=== PATIENT | male | born 1940 | race Caucasian/White ===

== ENCOUNTER 2016-10-04 14:17 | Outpatient (CLI) | payer MEDICARE, OTHER | END 2016-10-04 14:18 | disposition home or self-care (01) | DX: M25.512 Pain in left shoulder (principal) ==

== ENCOUNTER 2016-10-16 10:32 | Outpatient (CLI) | payer MEDICARE, OTHER | END 2016-10-16 10:33 | disposition home or self-care (01) | DX: M75.102 Unspecified rotator cuff tear or rupture of left shoulder, not specified as traumatic (principal); M67.88 Other specified disorders of synovium and tendon, other site ==

== ENCOUNTER 2017-09-14 11:02 | Outpatient (CLI) | payer MEDICARE, OTHER | END 2017-09-14 11:03 | disposition home or self-care (01) | LOC: DI 11:02 | PROVIDERS: ATTEND Family Medicine | DX: R01.1 Cardiac murmur, unspecified (principal); I35.0 Nonrheumatic aortic (valve) stenosis; I51.7 Cardiomegaly | CPT/HCPCS: 93306 ==

== ENCOUNTER 2018-10-23 09:40 | Outpatient (CLI) | payer MEDICARE, OTHER ==
--- NOTE | 2018-10-23 15:12 | XRAY Report ---
Reason: RADICULOPATHY, CERVICAL REGION Procedure Date: 10/23/2018 Accession Number: [id number] / [id number] Procedure: XRN - Cervical Spine 2 View CPT Code: FULL RESULT: EXAM: CERVICAL SPINE RADIOGRAPHY EXAM DATE: 10/23/2018 10:00 AM. CLINICAL HISTORY: Radiculopathy, cervical region. COMPARISONS: None. TECHNIQUE: 3 views. FINDINGS: Alignment: There is 32 degrees of focal kyphosis across the C4 body/fusion with widening of the interspinous distances at C3-C4 and C4-C5. There is variable 4-6 mm of retrolisthesis of the posterior-inferior margin of C4 relative to C5 due to this kyphosis. Bones: There is mature interbody fusion at C5-C6. There has been an interbody fusion at C4-C5. The threads of the upper screws are mostly within the C3-C4 disk level and the anterior-inferior corner of C3 is impacting upon the upper ACDF plate due to the advanced focal kyphosis. No acute fractures appreciated. Disks: In addition to above, there is disk space narrowing and a moderate anterior osteophyte at C6-C7. Facets: No degenerative disease. Soft Tissues: Mild prominence to the prevertebral soft tissues anterior to C3 through C5 may be due to the kyphosis. IMPRESSION: Findings consistent with partial failure/complication of the ACDF fusion at C4-C5 of uncertain chronicity, as described. There is 32 degrees of focal kyphosis and upwards of 5-6 mm of retrolisthesis at C4-C5. [facility] The call report notification system was initiated by Dr. Roosevelt Doe at 01:44 PM on 10/23/2018. ADDENDUM: 10/23/18 15:13 The above call report findings were discussed with Kieran Ornelas by Dr. Roosevelt Doe at 03:13 PM on 10/23/2018.
== END 2018-10-23 09:41 | disposition home or self-care (01) ==
LOC: DI.N 09:40
PROVIDERS: ATTEND Specialist
DX: M50.323 Other cervical disc degeneration at C6-C7 level (principal); M40.202 Unspecified kyphosis, cervical region; M43.12 Spondylolisthesis, cervical region
CPT/HCPCS: 72040

== ENCOUNTER 2020-08-05 07:55 | Outpatient (CLI) | payer MEDICARE, OTHER | END 2020-08-05 07:56 | disposition short-term general hospital (02) | LOC: EMS 07:55 | PROVIDERS: ATTEND Surgery | DX: R41.0 Disorientation, unspecified (principal); R29.91 Unspecified symptoms and signs involving the musculoskeletal system; R47.81 Slurred speech | CPT/HCPCS: A0425; A0427 ==

== ENCOUNTER 2021-06-04 00:29 | Outpatient (CLI) | payer MEDICARE, OTHER | END 2021-06-04 00:30 | disposition short-term general hospital (02) | LOC: EMS 00:29 | DX: R06.00 Dyspnea, unspecified (principal); I48.91 Unspecified atrial fibrillation; R05.9 Cough, unspecified | CPT/HCPCS: A0425; A0427 ==

== ENCOUNTER 2021-07-14 06:58 | Outpatient (CLI) | payer MEDICARE, OTHER | END 2021-07-14 23:59 | disposition critical access hospital (66) | LOC: EMS 06:58 | DX: R53.1 Weakness (principal); M54.50 Low back pain, unspecified; R26.81 Unsteadiness on feet | CPT/HCPCS: A0425; A0427 ==

== ENCOUNTER 2021-07-14 07:30 | Emergency (ER) | payer MEDICARE, OTHER ==
[2021-07-14] MEDS ORDERED: SODIUM CHLORIDE 0.9% 1,000 ML IV STA ×2 (07:49→13:30)
--- NOTE | 2021-07-14 08:03 | ED Physician Documentation ---
History of Present Illness - Stated complaint Stated Complaint: LOW BACK PX - Chief complaint Chief Complaint: Cardiac - History obtained from History obtained from: Patient, EMS - History of Present Illness Timing: How many days ago (2) - Additonal information Additional information: 80-year-old male with a history of COPD and atrial fibrillation on Eliquis has had a recent NSTEMI and placement of stents about 6 weeks ago. Today he was getting ready to go into his follow-up appointment with Dr. Preciado and he was too weak to get into the car to come to the hospital and had significant spasm of the muscles in his back. This was so bad that he called the ambulance. Review of Systems Constitutional: denies: Fever Ears: denies: Ear pain Nose: denies: Rhinorrhea / runny nose, Congestion Throat: denies: Sore throat Cardiac: denies: Chest pain / pressure, Palpitations, Pedal edema, Calf pain Respiratory: reports: Dyspnea. denies: Cough, Wheezing GI: denies: Abdominal Pain, Nausea, Vomiting, Constipation, Diarrhea : reports: Frequency. denies: Dysuria Skin: denies: Rash Musculoskeletal: denies: Neck pain, Back pain, Extremity pain, Extremity swelling Neurologic: reports: Generalized weakness. denies: Focal weakness, Numbness PD PAST MEDICAL HISTORY - Past Medical History Cardiovascular: Hypertension, High cholesterol, Other Respiratory: COPD, Shortness of breath, Other Endocrine/Autoimmune: None GI: Diverticulitis : Other Psych: Anxiety, Claustrophobia Musculoskeletal: Chronic back pain - Past Surgical History General: Appendectomy, Colonoscopy, EGD Ortho: Spine surgery, Other Cardiovascular: Other - Present Medications Home Medications: Ambulatory Orders Medication Instructions Recorded Confirmed Atorvastatin Calcium [Lipitor] 40 mg PO DAILY 01/01/13 09/16/15 Butalb/Acetam/Caff 50/325/40 1 each PO BID 01/01/13 09/16/15 [Fioricet] Esomeprazole Magnesium [Nexium] 40 mg PO DAILY 01/01/13 09/16/15 Gabapentin 800 mg PO DAILY 01/01/13 09/16/15 Losartan [Cozaar] 100 mg PO DAILY 01/01/13 09/16/15 Meloxicam 15 mg PO DAILY 01/01/13 09/16/15 hydroCHLOROthiazide 12.5 mg PO DAILY 01/01/13 09/16/15 [Hydrochlorothiazide] Albuterol 1 puffs INH ONCE PRN 09/13/15 09/16/15 Tiotropium Redmon [Spiriva] 50 mcg INH DAILY 09/13/15 09/16/15 Azithromycin [Zithromax] 250 mg PO DAILY #6 tablet 07/14/21 - Allergies Allergies/Adverse Reactions: Allergies Allergy/AdvReac Type Severity Reaction Status Date / Time codeine [Codeine] AdvReac Severe Nausea, Verified 07/14/21 07:44 vomiting, GI upset beta Blockers AdvReac Intermediate Hallucinati Uncoded 07/14/21 07:44 ons PD ED PE NORMAL - Vitals Vital signs reviewed: Yes (wide pulse pressure) - General General: Alert and oriented X 3, No acute distress, Well developed/nourished - HEENT HEENT: Atraumatic, PERRL, EOMI - Neck Neck: Supple, no meningeal sign - Cardiac Cardiac: RRR, Other (2/6 holosystolic murmer at LSB) - Respiratory Respiratory: Clear bilaterally, Other (tachypneic at rest) - Abdomen Abdomen: Soft, Non tender - Back Back: No CVA TTP, No spinal TTP, Other (mild point tenderness to firm para spinous muscles of the lower lumbar spine. ) - Derm Derm: Normal color, Warm and dry, No rash, Other (Skin tents easily ) - Extremities Extremities: No deformity, No edema - Neuro Neuro: Alert and oriented X 3, volleyball player 2-12 intact, No motor deficit, No sensory deficit, Normal speech Eye Opening: Spontaneous Motor: Obeys Commands Verbal: Oriented GCS Score: 15 - Psych Psych: Normal mood, Normal affect Results - Vitals Vitals: Vital Signs - 24 hr 07/14/21 07/14/21 07:39 13:00 Temperature 36.1 C L Heart Rate 100 83 Respiratory 17 22 Rate Blood Pressure 109/55 L 130/85 H O2 Saturation 92 Oxygen O2 Source Room air - EKG (time done) 0755 Rate: Rate (enter#) (98) Ischemia: Q waves Compare to prior EKG: Old EKG unavailable Computer interpretation: Agree with computer - Labs Labs: Laboratory Tests 07/14/21 07/14/21 07/14/21 08:32 08:32 08:32 WBC 13.2 H RBC 2.96 L Hgb 8.4 L Hct 26.6 L MCV 89.9 MCH 28.4 MCHC 31.6 L RDW 15.2 H Plt Count 401 MPV 10.6 Neut # (Auto) 10.8 H Lymph # (Auto) 0.8 L [place] # (Auto) 0.9 Eos # (Auto) 0.1 Baso # (Auto) 0.1 Absolute Nucleated RBC 0.00 Band Neuts % (Manual) Not Reportable Abnorm Lymph % (Manual) Not Reportable Nucleated RBC % 0.0 Neutrophils # (Manual) Not Reportable Lymphocytes # (Manual) Not Reportable Monocytes # (Manual) Not Reportable Eosinophils # (Manual) Not Reportable Basophils # (Manual) Not Reportable Differential Comment MANUAL=AUTO DIFF Manual Slide Review Indicated WBC Morphology NORMAL APPEARANCE Platelet Estimate NORMAL (130-450,000) Platelet Morphology NORMAL APPEARANCE RBC Morph Micro Appear 1+ ANISOCYTOSIS Sodium 140 Potassium 3.6 Chloride 104 Carbon Dioxide 25 Anion Gap 11.0 BUN 38 H Creatinine 2.1 H Estimated GFR (MDRD) 31 L Glucose 103 H Calcium 8.7 Total Bilirubin 1.0 AST 17 ALT 10 Alkaline Phosphatase 75 Troponin I High Sens 20.3 H* Total Protein 6.3 L Albumin 3.1 L Globulin 3.2 Albumin/Globulin Ratio 1.0 Lipase 37 - Rads (name of study) chest Radiology: Prelim report reviewed (Impression: Lower lobe pneumonia. Recommend follow-up chest x-ray in 1 month following appropriate treatment to ensure resolution of the finding.), EMP read indepedently, See rad report Procedures - IVC sono (time) 7879 Bedside IVC sono: IVC measures (cm) (1.1), IVC collapsed c insp (cm) (complete), Dehydration (est 1+ liter deficit) PD MEDICAL DECISION MAKING - ED course Complexity details: reviewed old records, reviewed results, re-evaluated patient, considered differential, d/w patient ED course: 80-year-old male with a recent NSTEMI and stent placement was on his way to the hospital this morning to see Dr. Preciado in follow-up. His had trouble getting him into the car as he appeared weak and was having a difficult time walking with severe back spasm. The called the ambulance and the patient is transported the hospital. He states that his back spasm is now better. On my evaluation the patient appeared dehydrated. He arrived to the emergency department feeling improved but had the appearance of tenting skin a wide pulse pressure and hypotension. I interrogated his inferior vena cava with bedside ultrasound found to be completely collapsing with respiration. The vessel was wispy but measured at a maximum diameter of 1.1 cm. The patient is administered administered intravenous saline. The patient is on hydrochlorothiazide and I suspect that his heart is working better than it has been previously perfusing his kidneys more. Departure - Departure Disposition: 01 Home, Self Care Clinical Impression: Dehydration determined by examination Pneumonia Qualifiers: Pneumonia type: due to unspecified organism Laterality: left Lung location: lower lobe of lung Qualified Code(s): J18.9 - Pneumonia, unspecified organism Condition: Stable Instructions: ED Dehydration, ED Pneumonia Adult Follow-Up: YOBANY HOLDER [Physician No Access] - Prescriptions: Azithromycin [Zithromax] 250 mg PO DAILY #6 tablet Comments: Edward, today it looks like you were significantly dehydrated and this is the presumed reason for your weakness. In addition it appears you have some recurrence of pneumonia in the left lower lobe and we have given you a dose of antibiotic here in the emergency department and a prescription for a azithromycin has been E scribed to [facility] in [place]. Discharge Date/Time: 07/14/21 16:03
--- NOTE | 2021-07-14 08:12 | XRAY Report ---
PROCEDURE: Chest 1 View X-Ray INDICATIONS: Chest pain TECHNIQUE: One view of the chest was acquired. COMPARISON: None FINDINGS: Surgical changes and devices: Surgical clips in the left neck base.. Lungs and pleura: No pleural effusions or pneumothorax. Patchy opacities noted in the left lung base . Mediastinum: Mediastinal contours appear normal. Heart size is normal. Bones and chest wall: No suspicious bony lesions. Overlying soft tissues appear unremarkable. IMPRESSION: Lower lobe pneumonia. Recommend follow-up chest x-ray in one month following appropriate treatment to ensure resolution of the finding. Reviewed by: Crystal Espinal MD, PhD on 07/14/2021 8:10 AM PST Approved by: Crystal Espinal MD, PhD on 07/14/2021 8:10 AM PST Station ID: [id number]
[2021-07-14 08:39] LABS: BASOPHILS # (AUTO) 0.1 10^3/uL (0.0-0.1); BASOPHILS % (AUTO) 0.5 %; EOSINOPHILS # (AUTO) 0.1 10^3/uL (0.0-0.7); EOSINOPHILS % (AUTO) 0.4 %; HCT - HEMATOCRIT 26.6 % (42.0-52.0); HGB - HEMOGLOBIN 8.4 g/dL (14.0-18.0); LYMPHOCYTES # (AUTO) 0.8 10^3/uL (1.5-3.5); LYMPHOCYTES % (AUTO) 6.4 %; MEAN CORPUSCULAR HEMOGLOBIN 28.4 pg (27.0-31.0); MEAN CORPUSCULAR HGB CONC 31.6 g/dL (32.0-36.0); MEAN CORPUSCULAR VOLUME 89.9 fL (80.0-94.0); MEAN PLATELET VOLUME 10.6 fL (7.4-11.4); MONOCYTES # (AUTO) 0.9 10^3/uL (0.0-1.0); MONOCYTES % (AUTO) 6.6 %; NEUTROPHILS # (AUTO) 10.8 10^3/uL (1.5-6.6); NEUTROPHILS % (AUTO) 82.1 %; PLT - PLATELET COUNT 401 10^3/uL (130-450); RED BLOOD COUNT 2.96 10^6/uL (4.70-6.10); RED CELL DISTRIBUTION WIDTH 15.2 % (12.0-15.0); WHITE BLOOD COUNT 13.2 x10^3/uL (4.8-10.8)
[2021-07-14 08:40] LABS: SLIDE REVIEW? Indicated
[2021-07-14 08:54] LABS: ALBUMIN 3.1 g/dL (3.2-5.5); CALCIUM 8.7 mg/dL (8.5-10.3); CREATININE 2.1 mg/dL (0.6-1.2); POTASSIUM 3.6 mmol/L (3.5-5.0); TOTAL PROTEIN 6.3 g/dL (6.7-8.2)
[2021-07-14] MEDS ORDERED: cefTRIAXone 1 GM in SODIUM CHLORIDE 0.9% MINIBAG 100 ML IV STA (08:55)
[2021-07-14 09:16] LABS: PLATELET ESTIMATE, MANUAL NORMAL (130-450,000) (NORMAL)
[2021-07-14 09:17] LABS: DIFFERENTIAL COMMENT MANUAL=AUTO DIFF; PLATELET MORPHOLOGY NORMAL APPEARANCE (NORMAL); RBC MORPHOLOGY (MULTIPLE) 1+ ANISOCYTOSIS (NORMAL); WBC MORPHOLOGY (MULTIPLE) NORMAL APPEARANCE (NORMAL)
[2021-07-14 13:22] VITALS: BP 130/85
== END 2021-07-14 16:03 | disposition home or self-care (01) ==
LOC: EDUNIT# → ED 07:30
DX: E86.0 Dehydration (principal); J18.9 Pneumonia, unspecified organism
CPT/HCPCS: 36415; 80053; 83690; 84484; 85025; 93005; 96361; 96365; 99283

== ENCOUNTER 2021-07-17 08:06 | Outpatient (CLI) | payer MEDICARE, OTHER | END 2021-07-17 08:07 | disposition critical access hospital (66) | LOC: EMS 08:06 | DX: M54.2 Cervicalgia (principal); M54.9 Dorsalgia, unspecified; K92.1 Melena; I95.9 Hypotension, unspecified; W18.39XA Other fall on same level, initial encounter; Y92.002 Bathroom of unspecified non-institutional (private) residence as the place of occurrence of the external cause | CPT/HCPCS: A0425; A0429 ==

== ENCOUNTER 2021-08-25 13:27 | Outpatient (CLI) | payer MEDICARE, OTHER | END 2021-08-25 13:28 | disposition short-term general hospital (02) | LOC: EMS 13:27 | DX: K92.1 Melena (principal); R41.0 Disorientation, unspecified; R06.9 Unspecified abnormalities of breathing; R11.0 Nausea; M54.9 Dorsalgia, unspecified; W19.XXXA Unspecified fall, initial encounter; Y92.009 Unspecified place in unspecified non-institutional (private) residence as the place of occurrence of the external cause | CPT/HCPCS: A0425; A0427 ==